=== PATIENT | male | born 1945 | race Caucasian/White ===

== ENCOUNTER 2019-03-04 15:54 | Emergency (ER) | payer MEDICARE ==
[~2019-03-04] VITALS: Ht 182 cm; Wt 88.2 kg
[~2019-03-04 15:54] MED LIST: BENECAR; DNPZ5T PO; MEMA5TAB2 PO; NITR-65 PO; SULAR; TOPROL
[2019-03-04] MEDS ORDERED: AMOX500C2 (16:17)
[2019-03-04] MEDS ORDERED: MEMA10TA22 (16:17)
[2019-03-04] MEDS ORDERED: ACET1TAB43 (16:17)
[2019-03-04] MEDS ORDERED: LOSA100T57 (16:17)
[2019-03-04] MEDS ORDERED: METO-370 (16:17)
[2019-03-04] MEDS ORDERED: DONE10TA41 (16:17)
[2019-03-04] MEDS ORDERED: AMLO5TAB9 (16:17)
[2019-03-04 16:30] LABS: BASOPHILS % (AUTO) 0 % (0-10); EOSINOPHILS # (AUTO) 0.1 10^3/uL (0.0-0.3); EOSINOPHILS % (AUTO) 1 % (0-10); HEMATOCRIT 42 % (40-54); HEMOGLOBIN 14.4 G/DL (13.3-17.7); LYMPHOCYTES # (AUTO) 1.1 X 10^3 (1.0-4.0); LYMPHOCYTES % (AUTO) 13 % (12-44); MEAN CORPUSCULAR HEMOGLOBIN 33 PG (25-34); MEAN CORPUSCULAR HGB CONC 34 G/DL (32-36); MEAN CORPUSCULAR VOLUME 97 FL (80-99); MEAN PLATELET VOLUME 8.4 FL (7.4-10.4); MONOCYTES # (AUTO) 0.4 X 10^3 (0.0-1.0); MONOCYTES % (AUTO) 5 % (0-12); NEUTROPHILS # (AUTO) 6.7 X 10^3 (1.8-7.8); NEUTROPHILS % (AUTO) 80 % (42-75); PLATELET COUNT 208 10^3/uL (130-400); RED CELL DISTRIBUTION WIDTH 12.8 % (10.0-14.5); WHITE BLOOD COUNT 8.4 10^3/uL (4.3-11.0)
[2019-03-04 16:44] LABS: ALANINE AMINOTRANSFERASE 16 U/L (0-55); ALBUMIN 4.3 GM/DL (3.2-4.5); ALKALINE PHOSPHATASE 81 U/L (40-136); BILIRUBIN,TOTAL 0.8 MG/DL (0.1-1.0); BUN/CREATININE RATIO 12; CALCIUM 9.6 MG/DL (8.5-10.1); CARBON DIOXIDE 28 MMOL/L (21-32); CHLORIDE 105 MMOL/L (98-107); CREATININE SERUM 0.89 MG/DL (0.60-1.30); GFR ESTIMATED > 60; GLUCOSE 105 MG/DL (70-105); POTASSIUM 4.1 MMOL/L (3.6-5.0); SODIUM 141 MMOL/L (135-145); TOTAL PROTEIN 7.4 GM/DL (6.4-8.2)
--- NOTE | 2019-03-04 16:47 | NUR ---
Actual amount of bladder scan was 545mL
[2019-03-04] MEDS ORDERED: LIDOCAINE UROJET 2% GEL 10 ML PKG TOP ONE (17:00)
[2019-03-04] MEDS ORDERED: TAMSULOSIN 0.4 MG (FLOMAX) CAP PO ONE (17:15)
[2019-03-04 17:39] LABS: BILIRUBIN,URINE NEGATIVE (NEGATIVE); CLARITY,URINE CLEAR; COLOR,URINE YELLOW; GLUCOSE, URINE (UA) NEGATIVE (NEGATIVE); KETONES,URINE NEGATIVE (NEGATIVE); LEUKOCYTE ESTERASE ,URINE NEGATIVE (NEGATIVE); NITRITE,URINE NEGATIVE (NEGATIVE); PH,URINE 7 (5-9); PROTEIN,URINE NEGATIVE (NEGATIVE); UROBILINOGEN,URINE NORMAL (NORMAL)
[2019-03-04 17:42] LABS: BACTERIA,URINE NEGATIVE /HPF; RBC,URINE RARE /HPF
[2019-03-04] MEDS ORDERED: LOPERAMIDE 2 MG (IMODIUM) TABLET PO ONE (18:00)
--- NOTE | 2019-03-04 18:15 | ED General ---
General Chief Complaint: Abdominal/GI Problems Stated Complaint: N,V,D,UTI SYMPTOMS Nursing Triage Note: c/o nausea and diarrhea. reports urinary urgency Nursing Sepsis Screen: No Definite Risk Source of Information: Patient Exam Limitations: No Limitations History of Present Illness Date Seen by Provider: Mar 04, 2019 Time Seen by Provider: 16:00 Initial Comments This 73-year-old gentleman is brought to the emergency room by his with concerns about declining speech over the last 1-2 weeks. He is also had some agitation. He had some angry outbursts with his family in [place] over the weekend. Patient has had long-standing dementia for which he takes Aricept and Namenda. The Aricept was stopped about 2 weeks ago because of nausea. He was just restarted yesterday. His thinks perhaps stopping the Aricept may be a contributing factor. He also in the interim has had a dental extraction for a dental abscess. He has been on amoxicillin. He has developed some diarrhea the past couple of days. His rectal area is irritated as a result. He tried to urinate a couple of times prior to my exam and was unable. Allergies and Home Medications Allergies Coded Allergies: No Known Allergies (Verified Allergy, Unknown, 08/10/05) Home Medications Tamsulosin HCl 0.4 Mg Cap, 0.4 MG PO DAILY Prescribed by: JEANETTE MITCHELL on 03/04/19 5317 Patient Home Medication List Home Medication List Reviewed: Yes Review of Systems Review of Systems Constitutional: no symptoms reported EENTM: see HPI Respiratory: no symptoms reported Cardiovascular: no symptoms reported Gastrointestinal: see HPI Genitourinary: see HPI Musculoskeletal: no symptoms reported Skin: see HPI Psychiatric/Neurological: See HPI Hematologic/Lymphatic: No Symptoms Reported Immunological/Allergic: no symptoms reported Past Udzwflm-Ojplth-Dprnmt Hx Past Med/Social Hx: Reviewed Nursing Past Med/Soc Hx Patient Social History Alcohol Use: Denies Use Recreational Drug Use: No Smoking Status: Never a Smoker Recent Foreign Travel: No Contact w/Someone Who Travel: No Recent Infectious Disease Expo: No Physical Abuse: No Sexual Abuse: No Immunizations Up To Date Tetanus Booster (TDap): Less than 5yrs Date of Influenza Vaccine: Mar 13, 2012 Past Medical History Surgeries: Yes Appendectomy Respiratory: No Cardiac: Yes Hypertension Neurological: Yes Dementia Gastrointestinal: No Musculoskeletal: No Endocrine: No Cancer: No Psychosocial: No Integumentary: No Blood Disorders: No Physical Exam Vital Signs Vital Signs - First Documented 03/04/19 16:06 Temp 36.7 Pulse 74 Resp 18 B/P (MAP) 161/94 (116) Pulse Ox 97 Capillary Refill : Less Than 3 Seconds Height, Weight, BMI Height: '" Weight: lbs. oz. 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 Speech was articulate but content was confused.) Skin: Normal Color, Warm/Dry Progress/Results/Core Measures Suspected Sepsis Recent Fever Within 48 Hours: No Infection Criteria Present: None New/Unexplained Altered Menta: No Sepsis Screen: No Definite Risk SIRS Temperature: Pulse: 74 Respiratory Rate: 18 Laboratory Tests 03/04/19 16:20: White Blood Count 8.4 Blood Pressure 161 /94 Mean: 116 Laboratory Tests 03/04/19 16:20: Creatinine 0.89, Platelet Count 208, Total Bilirubin 0.8 Results/Orders Lab Results Laboratory Tests Test 03/04/19 16:20 03/04/19 17:10 Range/Units White Blood Count 8.4 4.3-11.0 10^3/uL Red Blood Count 4.33 L 4.35-5.85 10^6/uL Hemoglobin 14.4 13.3-17.7 G/DL Hematocrit 42 40-54 % Mean Corpuscular Volume 97 80-99 FL Mean Corpuscular Hemoglobin 33 25-34 PG Mean Corpuscular Hemoglobin Concent 34 32-36 G/DL Red Cell Distribution Width 12.8 10.0-14.5 % Platelet Count 208 130-400 10^3/uL Mean Platelet Volume 8.4 7.4-10.4 FL Neutrophils (%) (Auto) 80 H 42-75 % Lymphocytes (%) (Auto) 13 12-44 % Monocytes (%) (Auto) 5 0-12 % Eosinophils (%) (Auto) 1 0-10 % Basophils (%) (Auto) 0 0-10 % Neutrophils # (Auto) 6.7 1.8-7.8 X 10^3 Lymphocytes # (Auto) 1.1 1.0-4.0 X 10^3 Monocytes # (Auto) 0.4 0.0-1.0 X 10^3 Eosinophils # (Auto) 0.1 0.0-0.3 10^3/uL Basophils # (Auto) 0.0 0.0-0.1 10^3/uL Sodium Level 141 135-145 MMOL/L Potassium Level 4.1 3.6-5.0 MMOL/L Chloride Level 105 98-107 MMOL/L Carbon Dioxide Level 28 21-32 MMOL/L Anion Gap 8 5-14 MMOL/L Blood Urea Nitrogen 11 7-18 MG/DL Creatinine 0.89 0.60-1.30 MG/DL Estimat Glomerular Filtration Rate > 60 BUN/Creatinine Ratio 12 Glucose Level 105 70-105 MG/DL Calcium Level 9.6 8.5-10.1 MG/DL Corrected Calcium 9.4 8.5-10.1 MG/DL Total Bilirubin 0.8 0.1-1.0 MG/DL Aspartate Amino Transf (AST/SGOT) 25 5-34 U/L Alanine Aminotransferase (ALT/SGPT) 16 0-55 U/L Alkaline Phosphatase 81 40-136 U/L Total Protein 7.4 6.4-8.2 GM/DL Albumin 4.3 3.2-4.5 GM/DL Urine Color YELLOW Urine Clarity CLEAR Urine pH 7 5-9 Urine Specific [place] 1.010 L 1.016-1.022 Urine Protein NEGATIVE NEGATIVE Urine Glucose (UA) NEGATIVE NEGATIVE Urine Ketones NEGATIVE NEGATIVE Urine Nitrite NEGATIVE NEGATIVE Urine Bilirubin NEGATIVE NEGATIVE Urine Urobilinogen NORMAL NORMAL MG/DL Urine Leukocyte Esterase NEGATIVE NEGATIVE Urine RBC (Auto) NEGATIVE NEGATIVE Urine RBC RARE /HPF Urine WBC NONE /HPF Urine Squamous Epithelial Cells NONE /HPF Urine Crystals NONE /LPF Urine Bacteria NEGATIVE /HPF Urine Casts NONE /LPF Urine Mucus NEGATIVE /LPF Urine Culture Indicated NO My Orders Orders - JEANETTE ROBLES MD Cbc With Automated Diff (03/04/19 15:59) Comprehensive Metabolic Panel (03/04/19 15:59) Ua Culture If Indicated (03/04/19 15:59) Ed Iv/Invasive Line Start (03/04/19 15:59) Bladder Scan (03/04/19 16:26) Lidocaine 2% (Urojet) (Xylocaine Urojet) (03/04/19 17:00) Taylor Cath (03/04/19 17:01) Tamsulosin Capsule (Flomax Capsule) (03/04/19 17:15) Loperamide Tablet (Imodium Tablet) (03/04/19 18:00) Medications Given in ED Current Medications Medications Dose Ordered Sig/Quentin Route Start Time Stop Time Status Last Admin Dose Admin Lidocaine HCl 10 ml ONCE ONCE TOP 03/04/19 17:00 03/04/19 17:02 DC 03/04/19 17:25 10 ML Loperamide HCl 2 mg ONCE ONCE PO 03/04/19 18:00 03/04/19 18:01 DC 03/04/19 18:26 2 MG Tamsulosin HCl 0.4 mg ONCE ONCE PO 03/04/19 17:15 03/04/19 17:16 DC 03/04/19 18:26 0.4 MG Vital Signs/I&O 03/04/19 03/04/19 16:06 18:27 Temp 36.7 36.7 Pulse 74 74 Resp 18 18 B/P (MAP) 161/94 (116) 161/94 (116) Pulse Ox 97 97 Capillary Refill : Less Than 3 Seconds Blood Pressure Mean: 116 Progress Note : Progress Note Patient tried to urinate several times but could not. Urinary retention was suspected as a contributing factor to his confusion and agitation. Bladder scan showed a proximally 450 mL. Taylor catheter was placed and yielded approximately 600 mL of retained urine. Taylor catheter remained in place. Patient was given Imodium and Flomax prior to discharge and it Flomax prescription was provided. Patient is to follow-up with Dr. Swenson as soon as possible. Departure Impression Primary Impression: Urinary retention Additional Impressions: Dementia Qualified Codes: F03.91 - Unspecified dementia with behavioral disturbance Agitation Disposition: 01 HOME, SELF-CARE Condition: Improved Departure-Patient Inst. Decision time for Depature: 18:05 Referrals: LEEANNE ROBERT DO (PCP/Family) Primary Care Physician GABE SWENSON MD Patient Instructions: How to Care for Your Taylor Catheter, Male, Urinary Retention Add. Discharge Instructions: Follow-up with Dr. Swenson as soon as possible. Call his office Tuesday morning for an appointment. Start Flomax (tamsulosin) as prescribed. Empty the Taylor bag often. Try to keep the bag lower than the bladder as much as possible. Return to the emergency room if you have worsening symptoms or any problems with the catheter. Continue other medications as previously directed. Encourage plenty of clear liquids while diarrhea persists. Avoid dairy products until diarrhea has resolved for a couple of days. You may use Imodium sparingly. All discharge instructions reviewed with patient and/or family. Voiced understanding. Scripts Tamsulosin HCl (Flomax) 0.4 Mg Cap 0.4 MG PO DAILY, #30 CAP Prov: JEANETTE ROBLES MD 03/04/19 Copy Copies To 1: GABE SWENSON MD Copies To 2: LEEANNE ROBERT JOSHUA T MD Mar 04, 2019 18:15
[2019-03-04] MEDS ORDERED: TAMS0.4C98 PO (18:20)
[2019-03-04 18:27] VITALS: BP 161/94
== END 2019-03-04 18:27 | disposition home or self-care (01) ==
LOC: EDUNIT# 15:54 → ER 15:56
DX: R33.9 Retention of urine, unspecified (principal); F03.90 Unspecified dementia, unspecified severity, without behavioral disturbance, psychotic disturbance, mood disturbance, and anxiety; R45.1 Restlessness and agitation; I10 Essential (primary) hypertension; Z90.49 Acquired absence of other specified parts of digestive tract
CPT/HCPCS: 36415; 51702; 80053; 81000; 85025

== ENCOUNTER 2019-03-07 09:52 | Emergency (ER) | payer MEDICARE ==
[~2019-03-07] VITALS: Ht 177 cm; Wt 80.0 kg
[~2019-03-07 09:52] MED LIST changes: +ACET1TAB43; +AMLO5TAB9; +AMOX500C2; +DONE10TA41; +LOSA100T57; +MEMA10TA22; +METO-370; +TAMS0.4C98 PO
--- NOTE | 2019-03-07 10:51 | NUR ---
SOLIS CATH REMOVED
--- NOTE | 2019-03-07 11:09 | ED GU-Male ---
General Chief Complaint: Catheter/Drain/Tube Problems Stated Complaint: CATHETER ISSUES Nursing Triage Note: PT TO ROOM 8 PT CO OF PT HAVING PAIN IN CATHETER AREA LAST PM, PT HAS HX OF ALZHIEMERS AND IS PLEASANTLY CONFUSED. PT IS TO SEE DR SWENSON AT 1430 TODAY. Source: patient Exam Limitations: no limitations History of Present Illness Date Seen by Provider: Mar 07, 2019 Time Seen by Provider: 10:50 Initial Comments Here with report of irritation around the area of the catheter. He had that placed several days ago for urinary retention. He has been doing better since. He does have appointment with Dr. Swenson today at 1430. No fever or vomiting. Previously had diarrhea but that subsequently stopped. He has not had a bowel movement for several days but he did have Imodium after the diarrhea illness. He is not uncomfortable in the abdomen at all. Timing/Duration: this morning Severity/Quality: moderate Location: other (penile/urethral) Radiation: none Activities at Onset: none Associated Symptoms: No abdominal pain, No fever/chills, No nausea/vomiting Allergies and Home Medications Allergies Coded Allergies: No Known Allergies (Verified Allergy, Unknown, 08/10/05) Home Medications Tamsulosin HCl 0.4 Mg Cap, 0.4 MG PO DAILY Prescribed by: JEANETTE MITCHELL on 03/04/19 1820 Patient Home Medication List Home Medication List Reviewed: Yes Review of Systems Review of Systems Constitutional: see HPI; No chills, No fever Respiratory: no symptoms reported Cardiovascular: no symptoms reported Gastrointestinal: no symptoms reported Genitourinary: see HPI, burning, pain Past Dgghhha-Rwofbi-Hzxdcc Hx Past Med/Social Hx: Reviewed Nursing Past Med/Soc Hx Patient Social History Alcohol Use: Denies Use Recreational Drug Use: No Smoking Status: Never a Smoker Recent Foreign Travel: No Contact w/Someone Who Travel: No Recent Infectious Disease Expo: No Recent Hopitalizations: No Physical Abuse: No Sexual Abuse: No Immunizations Up To Date Tetanus Booster (TDap): Less than 5yrs Date of Influenza Vaccine: Mar 13, 2012 Seasonal Allergies Seasonal Allergies: No Past Medical History Surgeries: Yes Appendectomy Respiratory: No Cardiac: Yes Hypertension Neurological: Yes Dementia Gastrointestinal: No Musculoskeletal: No Endocrine: No Cancer: No Psychosocial: No Integumentary: No Blood Disorders: No Family Medical History Reviewed Nursing Family Hx Physical Exam Vital Signs Vital Signs - First Documented 03/07/19 10:00 Temp 36.3 Pulse 79 Resp 18 B/P (MAP) 152/93 (112) Pulse Ox 97 Capillary Refill : Less Than 3 Seconds Height, Weight, BMI Height: '" Weight: lbs. oz. kg; 25.00 BMI Method:Actual General Appearance: WD/WN, no apparent distress Cardiovascular: regular rate, rhythm, no murmur Respiratory: lungs clear, normal breath sounds Male: normal genitalia, other (seems to have some irritation from the catheter to the urethral meatus) Neurologic/Psychiatric: alert, normal mood/affect, other (does have dementia and is confused and has some difficulty with conversation but not change from baseline per the .) Progress/Results/Core Measures Suspected Sepsis Recent Fever Within 48 Hours: No Infection Criteria Present: None New/Unexplained Altered Menta: No Sepsis Screen: No Definite Risk SIRS Temperature: Pulse: 79 Respiratory Rate: 18 Blood Pressure 152 /93 Mean: 112 Results/Orders Vital Signs/I&O 03/07/19 10:00 Temp 36.3 Pulse 79 Resp 18 B/P (MAP) 152/93 (112) Pulse Ox 97 Capillary Refill : Less Than 3 Seconds Blood Pressure Mean: 112 Progress Note : Progress Note Seen and evaluated. The patient does have free flowing urine from the catheter. There does appear to be causing some irritation. We went ahead and removed that he was much more comfortable. He does have appointment with Dr. Swenson today to evaluate for urinary problems including prostate problems. We will have him continue that appointment. Overall much better now. Discharged home with return precautions. Patient and verbalize understanding instructions and agreement with plan. Departure Impression Primary Impression: Problem with urinary catheter Disposition: 01 HOME, SELF-CARE Condition: Improved Departure-Patient Inst. Decision time for Depature: 11:07 Referrals: LEEANNE ROBERT DO (PCP/Family) Primary Care Physician GABE SWENSON MD Patient Instructions: Taylor Catheter, Male, How to Care for Your Taylor Catheter, Male Add. Discharge Instructions: All discharge instructions reviewed with patient and/or family. Voiced understanding. Keep appointment with Dr. Swenson today as scheduled. Return for worse pain, problems going to the bathroom, weakness, breathing problems, fevers or other concerns as needed. Copy Copies To 1: GABE SWENSON MD Copies To 2: LEEANNE ROBERT TIMOTHY D MD Mar 07, 2019 11:08
[2019-03-07 11:12] VITALS: BP 152/93
== END 2019-03-07 11:12 | disposition home or self-care (01) ==
LOC: EDUNIT# 09:52 → ER 09:53
DX: T83.098A Other mechanical complication of other urinary catheter, initial encounter (principal); I10 Essential (primary) hypertension; G30.9 Alzheimer's disease, unspecified; F02.80 Dementia in other diseases classified elsewhere, unspecified severity, without behavioral disturbance, psychotic disturbance, mood disturbance, and anxiety; Z90.49 Acquired absence of other specified parts of digestive tract
CPT/HCPCS: 99281

== ENCOUNTER 2019-03-22 03:12 | Emergency (ER) | payer MEDICARE ==
[~2019-03-22] VITALS: Ht 182 cm; Wt 77.0 kg
[2019-03-22 04:04] LABS: BILIRUBIN,URINE NEGATIVE (NEGATIVE); CLARITY,URINE CLEAR; COLOR,URINE YELLOW; GLUCOSE, URINE (UA) NEGATIVE (NEGATIVE); KETONES,URINE NEGATIVE (NEGATIVE); LEUKOCYTE ESTERASE ,URINE NEGATIVE (NEGATIVE); NITRITE,URINE NEGATIVE (NEGATIVE); PH,URINE 6 (5-9); PROTEIN,URINE NEGATIVE (NEGATIVE); UROBILINOGEN,URINE NORMAL (NORMAL)
[2019-03-22 04:10] LABS: BACTERIA,URINE NEGATIVE /HPF; SQUAMOUS EPITHELIAL CELL,UR RARE /HPF; WBC,URINE RARE /HPF
[2019-03-22 04:11] LABS: HYALINE CASTS, URINE RARE /LPF
--- NOTE | 2019-03-22 05:25 | ED General ---
General Chief Complaint: - Urinary Stated Complaint: CONSTIPATION, PAIN Nursing Triage Note: PT PRESENTS TO THE ED AMBULATORY TO ROOM 10, STATES THAT THE PT HASN'S HAD A BOWEL MOVEMENT FOR THREE DAYS, SEVERAL OTC MEDS HAVE BEEN GIVEN. PT'S STATES THE PT IS A POOR HISTORIAN D/T HAVING DEMENTIA, PT VERBALIZED THE NEED/SENSATION TO URINATE, STATES THE PT HAS HAD POOR URINE OUTPUT AND RECENTLY REQUIRED A CATHETER D/T RETENTION THAT WAS REMOVED SEVERAL DAYS AGO Nursing Sepsis Screen: No Definite Risk Source of Information: Patient Exam Limitations: No Limitations History of Present Illness Date Seen by Provider: Mar 22, 2019 Time Seen by Provider: 03:29 Initial Comments This 73-year-old gentleman is brought to the emergency room by his with concerns about abdominal pain and possible constipation. She reports that he has intermittently been doubled over in pain tonight. He has not slept well las t night or tonight. He denies pain at the time of my assessment. Patient has been developing progressive dementia recently. Patient recently had a history of urinary obstruction and had a Taylor catheter placed until follow-up with Dr. Swenson. Unfortunately, patient's dementia makes him a poor historian and he is unable to communicate specifics about his condition and pain. Allergies and Home Medications Allergies Coded Allergies: No Known Allergies (Verified Allergy, Unknown, 08/10/05) Home Medications Tamsulosin HCl 0.4 Mg Cap, 0.4 MG PO DAILY Prescribed by: JEANETTE MITCHELL on 03/04/19 6842 Patient Home Medication List Home Medication List Reviewed: Yes Review of Systems Review of Systems Constitutional: no symptoms reported EENTM: no symptoms reported Respiratory: no symptoms reported Cardiovascular: no symptoms reported Gastrointestinal: see HPI Genitourinary: see HPI Musculoskeletal: no symptoms reported Skin: no symptoms reported Psychiatric/Neurological: See HPI Hematologic/Lymphatic: No Symptoms Reported Immunological/Allergic: no symptoms reported Past Nyyosgm-Vzlulk-Vwaclh Hx Patient Social History Alcohol Use: Denies Use Recreational Drug Use: No Smoking Status: Never a Smoker Recent Foreign Travel: No Contact w/Someone Who Travel: No Recent Infectious Disease Expo: No Recent Hopitalizations: No Physical Abuse: No Sexual Abuse: No Mistreated: No Fear: No Immunizations Up To Date Tetanus Booster (TDap): Less than 5yrs PED Vaccines UTD: Yes Date of Influenza Vaccine: Mar 13, 2012 Seasonal Allergies Seasonal Allergies: No Past Medical History Surgeries: Yes Appendectomy Respiratory: No Cardiac: Yes Hypertension Neurological: Yes Dementia Genitourinary: Yes (URINARY RETENTION 03/31) Gastrointestinal: No Musculoskeletal: No Endocrine: No Cancer: No Psychosocial: No Integumentary: No Blood Disorders: No Physical Exam Vital Signs Vital Signs - First Documented 03/22/19 03:20 Temp 35.7 Pulse 70 Resp 18 B/P (MAP) 148/91 (110) Pulse Ox 95 O2 Delivery Room Air Capillary Refill : Less Than 3 Seconds Height, Weight, BMI Height: '" Weight: lbs. oz. 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, Other (confused with dementia) Skin: Normal Color, Warm/Dry Progress/Results/Core Measures Suspected Sepsis Recent Fever Within 48 Hours: No Infection Criteria Present: None New/Unexplained Altered Menta: No Sepsis Screen: No Definite Risk SIRS Temperature: Pulse: 70 Respiratory Rate: 18 Blood Pressure 148 /91 Mean: 110 Results/Orders Lab Results Laboratory Tests Test 03/22/19 03:59 Range/Units Urine Color YELLOW Urine Clarity CLEAR Urine pH 6 5-9 Urine Specific [place] 1.020 1.016-1.022 Urine Protein NEGATIVE NEGATIVE Urine Glucose (UA) NEGATIVE NEGATIVE Urine Ketones NEGATIVE NEGATIVE Urine Nitrite NEGATIVE NEGATIVE Urine Bilirubin NEGATIVE NEGATIVE Urine Urobilinogen NORMAL NORMAL MG/DL Urine Leukocyte Esterase NEGATIVE NEGATIVE Urine RBC (Auto) NEGATIVE NEGATIVE Urine RBC NONE /HPF Urine WBC RARE /HPF Urine Squamous Epithelial Cells RARE /HPF Urine Crystals NONE /LPF Urine Bacteria NEGATIVE /HPF Urine Casts PRESENT /LPF Urine Hyaline Casts RARE /LPF Urine Mucus SMALL H /LPF Urine Culture Indicated NO My Orders Orders - JEANETTE ROBLES MD Ua Culture If Indicated (03/22/19 03:36) Abdomen, Flat & Upright/Decub (03/22/19 03:36) Bladder Scan (03/22/19 03:36) Vital Signs/I&O 03/22/19 03/22/19 03:20 05:31 Temp 35.7 35.7 Pulse 70 70 Resp 18 18 B/P (MAP) 148/91 (110) 148/91 (110) Pulse Ox 95 95 O2 Delivery Room Air Capillary Refill : Less Than 3 Seconds Blood Pressure Mean: 110 Progress Note : Progress Note Patient was unable to urinate despite feeling like he needed to. A bladder scan was performed and revealed 550 mL of retained urine. Taylor catheter was placed and patient did feel better. Abdominal x-rays were obtained. There seemed to be a significant amount of stool in the rectum but otherwise the bowel gas pattern was unremarkable without significant constipation noted elsewhere. Diagnostic Imaging Diagonstic Imaging: Xray Plain Films/CT/US/NM/MRI: abdomen, pelvis Comments KUB and upright viewed by me. Report not yet available. There is notable stool throughout the colon and small bowel but this does not appear to represent constipation. He did have more stool in the rectum. No other acute abnormalities were appreciated. Departure Impression Primary Impression: Urinary obstruction Additional Impression: Constipation Qualified Codes: K59.00 - Constipation, unspecified Disposition: 01 HOME, SELF-CARE Condition: Improved Departure-Patient Inst. Decision time for Depature: 05:05 Referrals: LEEANNE ROBERT DO (PCP/Family) Primary Care Physician Patient Instructions: Constipation in Adults, Taylor Catheter, Male, Urinary Obstruction Add. Discharge Instructions: Empty the catheter bag frequently and try to keep the catheter bag below the level of the bladder is much as possible. Follow-up with Dr. Swenson as soon as possible. Encourage plenty of clear liquids. Eat a diet high in fiber with plenty of fruits, vegetables, and whole grain products. Avoid excessive meats, cheeses, fast foods, or processed foods. If constipation does not resolve with placement of the catheter, consider using MiraLAX (polyethylene glycol) once or twice a day or a Dulcolax suppository. These may be purchased [id number]. Follow-up with your primary care provider as soon as possible. All discharge instructions reviewed with patient and/or family. Voiced understanding. Copy Copies To 1: LEEANNE ROBERT DO Copies To 2: GABE SWENSON MD, JOSHUA T MD Mar 22, 2019 05:25
[2019-03-22 05:31] VITALS: BP 148/91
--- NOTE | 2019-03-22 07:11 | Diagnostic Imaging Report ---
INDICATION: Constipation. FINDINGS: The lung bases are clear. Bowel gas pattern is nonspecific. There is no free air. There are calcified phleboliths in the pelvis. IMPRESSION: Nonspecific bowel gas pattern. Dictated by: Dictated on workstation # [id number]
== END 2019-03-22 05:32 | disposition home or self-care (01) ==
LOC: EDUNIT# 03:12 → ER 03:13
DX: N13.9 Obstructive and reflux uropathy, unspecified (principal); K59.00 Constipation, unspecified; I10 Essential (primary) hypertension; F03.90 Unspecified dementia, unspecified severity, without behavioral disturbance, psychotic disturbance, mood disturbance, and anxiety; Z90.49 Acquired absence of other specified parts of digestive tract
CPT/HCPCS: 51702; 74019; 81000

== ENCOUNTER 2019-06-24 11:39 | Emergency (ER) | payer MEDICARE ==
[~2019-06-24] VITALS: Ht 177 cm; Wt 80.0 kg
[~2019-06-24 11:39] MED LIST changes: -AMLO5TAB9; +AMLO5TAB9 PO; -LOSA100T57; +LOSA100T57 PO; -MEMA10TA22; +MEMA10TA57 PO; -METO-370; +METO50TA7 PO; -TAMS0.4C98 PO; +TMSL.4C PO
--- NOTE | 2019-06-24 11:58 | ED Psychosocial ---
General Chief Complaint: Psych/Social Disorder Stated Complaint: ANXIETY History of Present Illness Date Seen by Provider: Jun 24, 2019 Time Seen by Provider: 11:45 Initial Comments 73-year-old male with history of dementia presents because his is concerned about increased anxiety, paranoia and difficult to manage at home. He has progressively been getting worse over the last 6 months, nothing acute this weekend. She has respite care in the home 3-4 hours/week, otherwise she manages his care. She has POA, it is not on file here. She states [facility] were [facility] this [facility] and he began crying uncontrollably. He is alert, in no signs of distress, not crying or emotional at this time. Answers some questions appropriately but has flight of ideas and impaired concentration. Cooperative with staff. reports he is eating good at home and drinks water. He sleeps most nights and through the day, but usually no more than 3 hours at a time. Is taking medication for Alzheimer's dementia as well as Lexapro for anxiety and Xanax 1-2 times daily, she has been trying to limit it and only use at night. No recent infections, fevers, cough, Weight gain/loss, falls or head injuries. He has an appt tomorrow with his PCP to discuss [facility] at [facility] Timing/Duration: getting worse Severity: mild Associated Symptoms: anxiety, impaired concentration Allergies and Home Medications Allergies Coded Allergies: No Known Allergies (Verified Allergy, Unknown, 08/10/05) Home Medications Tamsulosin HCl 0.4 Mg Cap, 0.4 MG PO DAILY Prescribed by: JEANETTE MITCHELL on 03/04/19 7860 Patient Home Medication List Home Medication List Reviewed: Yes Review of Systems Constitutional: no symptoms reported, see HPI EENTM: see HPI, no symptoms reported Respiratory: no symptoms reported, see HPI Cardiovascular: no symptoms reported, see HPI Gastrointestinal: no symptoms reported, see HPI Genitourinary: no symptoms reported, see HPI Musculoskeletal: no symptoms reported, see HPI Skin: no symptoms reported, see HPI Psychiatric/Neurological: See HPI, Anxiety All Other Systems Reviewed Negative Unless Noted: Yes Past Tqrdxhl-Gqqxnc-Obhjat Hx Past Med/Social Hx: Reviewed Nursing Past Med/Soc Hx Patient Social History Recent Foreign Travel: No Contact w/Someone Who Travel: No Recent Hopitalizations: No Immunizations Up To Date Tetanus Booster (TDap): Less than 5yrs PED Vaccines UTD: Yes Date of Influenza Vaccine: Mar 13, 2012 Seasonal Allergies Seasonal Allergies: No Past Medical History Surgeries: Yes Appendectomy Respiratory: No Cardiac: Yes Hypertension Neurological: Yes Dementia Genitourinary: Yes (URINARY RETENTION 03/31) Gastrointestinal: No Musculoskeletal: No Endocrine: No Cancer: No Psychosocial: No Integumentary: No Blood Disorders: No Physical Exam Vital Signs - First Documented 06/24/19 11:40 Temp 36.6 Pulse 67 Resp 18 B/P (MAP) 139/86 (103) Pulse Ox 97 Capillary Refill : Height, Weight, BMI Height: '" Weight: lbs. oz. kg; 23.00 BMI Method:Actual General Appearance: WD/WN, no apparent distress HEENT: PERRL/EOMI, normal ENT inspection, TMs normal, pharynx normal Neck: non-tender, full range of motion, supple, normal inspection Respiratory: chest non-tender, lungs clear, normal breath sounds Cardiovascular: normal peripheral pulses, regular rate, rhythm Gastrointestinal: normal bowel sounds, non tender, soft Neurologic/Psychiatric: no motor/sensory deficits, alert, normal mood/affect (appropriate with bouts of confusion but cooperative and easily re-directed. ), other (Oriented to person and could state his 's name) Appearance/Memory: appropriate appearance; No appropriate insight; neat; No disheveled; impaired recent memory, impaired remote memory Behavior/Eye Contact: cooperative, good eye contact, decreased rate of speech; No compulsive, No uncooperative Thoughts/Hallucinations: flight of ideas, paranoid (about his leaving or new surroundings. ) Skin: normal color, warm/dry; No rash Lymphatic: no adenopathy Progress/Results/Core Measures Results/Orders Lab Results Laboratory Tests Test 06/24/19 11:50 06/24/19 12:26 Range/Units Urine Color YELLOW Urine Clarity CLEAR Urine pH 6.5 5-9 Urine Specific [place] 1.020 1.016-1.022 Urine Protein NEGATIVE NEGATIVE Urine Glucose (UA) NEGATIVE NEGATIVE Urine Ketones NEGATIVE NEGATIVE Urine Nitrite NEGATIVE NEGATIVE Urine Bilirubin NEGATIVE NEGATIVE Urine Urobilinogen 0.2 < = 1.0 MG/DL Urine Leukocyte Esterase NEGATIVE NEGATIVE Urine RBC (Auto) NEGATIVE NEGATIVE Urine RBC RARE /HPF Urine WBC RARE /HPF Urine Squamous Epithelial Cells RARE /HPF Urine Crystals NONE /LPF Urine Bacteria TRACE /HPF Urine Casts NONE /LPF Urine Mucus NEGATIVE /LPF Urine Culture Indicated NO White Blood Count 3.7 L 4.3-11.0 10^3/uL Red Blood Count 4.12 L 4.35-5.85 10^6/uL Hemoglobin 13.7 13.3-17.7 G/DL Hematocrit 40 40-54 % Mean Corpuscular Volume 98 80-99 FL Mean Corpuscular Hemoglobin 33 25-34 PG Mean Corpuscular Hemoglobin Concent 34 32-36 G/DL Red Cell Distribution Width 12.7 10.0-14.5 % Platelet Count 164 130-400 10^3/uL Mean Platelet Volume 7.8 7.4-10.4 FL Neutrophils (%) (Auto) 69 42-75 % Lymphocytes (%) (Auto) 21 12-44 % Monocytes (%) (Auto) 8 0-12 % Eosinophils (%) (Auto) 2 0-10 % Basophils (%) (Auto) 0 0-10 % Neutrophils # (Auto) 2.3 1.8-7.8 X 10^3 Lymphocytes # (Auto) 0.7 L 1.0-4.0 X 10^3 Monocytes # (Auto) 0.3 0.0-1.0 X 10^3 Eosinophils # (Auto) 0.1 0.0-0.3 10^3/uL Basophils # (Auto) 0.0 0.0-0.1 10^3/uL Prothrombin Time 13.8 12.2-14.7 SEC INR Comment 1.0 0.8-1.4 Activated Partial Thromboplast Time 29 24-35 SEC Sodium Level 138 135-145 MMOL/L Potassium Level 4.4 3.6-5.0 MMOL/L Chloride Level 109 H 98-107 MMOL/L Carbon Dioxide Level 17 L 21-32 MMOL/L Anion Gap 12 5-14 MMOL/L Blood Urea Nitrogen 11 7-18 MG/DL Creatinine 0.92 0.60-1.30 MG/DL Estimat Glomerular Filtration Rate > 60 BUN/Creatinine Ratio 12 Glucose Level 99 70-105 MG/DL Calcium Level 9.3 8.5-10.1 MG/DL Corrected Calcium 9.4 8.5-10.1 MG/DL Total Bilirubin 0.6 0.1-1.0 MG/DL Aspartate Amino Transf (AST/SGOT) 30 5-34 U/L Alanine Aminotransferase (ALT/SGPT) 20 0-55 U/L Alkaline Phosphatase 62 40-136 U/L Total Protein 6.9 6.4-8.2 GM/DL Albumin 3.9 3.2-4.5 GM/DL My Orders Orders - NICHO PATINO DANIELLA Ua Culture If Indicated (06/24/19 12:01) Cbc With Automated Diff (06/24/19 12:15) Comprehensive Metabolic Panel (06/24/19 12:15) Protime With Inr (06/24/19 12:15) Partial Thromboplastin Time (06/24/19 12:15) Vital Signs/I&O 06/24/19 11:40 Temp 36.6 Pulse 67 Resp 18 B/P (MAP) 139/86 (103) Pulse Ox 97 Progress Progress Note : Time: 11:45 Progress Note Patient seen and evaluated, will obtain labs to rule out medical cause vs progression of Alzheimer's. open to admitting to [facility] at [place], if an option. Call placed and screener will come evaluate patient. 1215 left to obtain POA paperwork. She does report patient had episode of attempted elopement on 06/22/19 while she was away from him. Respite care was able to manage him, until she returned home. Patient's door left open and staff watching him, while gone. 1230 Patient ambulated out of room, desiring to leave to find his . Cooperative and walked around ED, then returned to room. 1245 returned, continues to be cooperative, awaiting [facility] screener. 1305 Screener here to visit with patient and . 1415 Screener and have agreed to transfer patient to [facility] per private vehicle. Discharge instructions and return precautions reviewed with her. All questions answered. Departure Impression Primary Impression: Dementia Qualified Codes: G30.9 - Alzheimer's disease, unspecified; F02.81 - Dementia in other diseases classified elsewhere with behavioral disturbance Additional Impressions: Anxiety Paranoia Disposition: 02 XFER SHT-TRM HOSP Condition: Stable Transfer Transfer Reason: Exceeds level of care Transfer Progress Notes Patient evaluated by Screener and bed available for transfer, (POA) agreed with this plan of care. Transfer Time: 14:40 Transfer Facility: [facility] Method of Transfer: Private Vehicle Departure-Patient Inst. Decision time for Depature: 14:00 Referrals: JESSICA MACIEL MD (PCP/Family) Primary Care Physician Patient Instructions: Dementia (Including Alzheimer Disease) Copy Copies To 1: JESSICA MACIEL MD, AMY ARNP Jun 24, 2019 11:58
[2019-06-24] MEDS ORDERED: ALPR0.254 PO (12:03)
[2019-06-24] MEDS ORDERED: ESCI20TA45 PO (12:03)
[2019-06-24 12:07] LABS: BILIRUBIN,URINE NEGATIVE (NEGATIVE); CLARITY,URINE CLEAR; COLOR,URINE YELLOW; GLUCOSE, URINE (UA) NEGATIVE (NEGATIVE); KETONES,URINE NEGATIVE (NEGATIVE); LEUKOCYTE ESTERASE ,URINE NEGATIVE (NEGATIVE); NITRITE,URINE NEGATIVE (NEGATIVE); PH,URINE 6.5 (5-9); PROTEIN,URINE NEGATIVE (NEGATIVE)
[2019-06-24 12:14] LABS: BACTERIA,URINE TRACE /HPF; RBC,URINE RARE /HPF; SQUAMOUS EPITHELIAL CELL,UR RARE /HPF; WBC,URINE RARE /HPF
[2019-06-24 12:35] LABS: BASOPHILS % (AUTO) 0 % (0-10); EOSINOPHILS # (AUTO) 0.1 10^3/uL (0.0-0.3); EOSINOPHILS % (AUTO) 2 % (0-10); LYMPHOCYTES # (AUTO) 0.7 X 10^3 (1.0-4.0); LYMPHOCYTES % (AUTO) 21 % (12-44); MEAN CORPUSCULAR HGB CONC 34 G/DL (32-36); MEAN CORPUSCULAR VOLUME 98 FL (80-99); MEAN PLATELET VOLUME 7.8 FL (7.4-10.4); MONOCYTES # (AUTO) 0.3 X 10^3 (0.0-1.0); MONOCYTES % (AUTO) 8 % (0-12); NEUTROPHILS # (AUTO) 2.3 X 10^3 (1.8-7.8); NEUTROPHILS % (AUTO) 69 % (42-75); RED CELL DISTRIBUTION WIDTH 12.7 % (10.0-14.5)
[2019-06-24 12:36] LABS: HEMATOCRIT 40 % (40-54); HEMOGLOBIN 13.7 G/DL (13.3-17.7); MEAN CORPUSCULAR HEMOGLOBIN 33 PG (25-34); PLATELET COUNT 164 10^3/uL (130-400); WHITE BLOOD COUNT 3.7 10^3/uL (4.3-11.0)
[2019-06-24 12:49] LABS: PROTHROMBIN TIME PATIENT 13.8 SEC (12.2-14.7)
--- NOTE | 2019-06-24 12:52 | NUR ---
SCREENER HERE TO SEE PT
[2019-06-24 12:59] LABS: ALANINE AMINOTRANSFERASE 20 U/L (0-55); ALBUMIN 3.9 GM/DL (3.2-4.5); ALKALINE PHOSPHATASE 62 U/L (40-136); BILIRUBIN,TOTAL 0.6 MG/DL (0.1-1.0); BUN/CREATININE RATIO 12; CALCIUM 9.3 MG/DL (8.5-10.1); CARBON DIOXIDE 17 MMOL/L (21-32); CHLORIDE 109 MMOL/L (98-107); CREATININE SERUM 0.92 MG/DL (0.60-1.30); GFR ESTIMATED > 60; GLUCOSE 99 MG/DL (70-105); POTASSIUM 4.4 MMOL/L (3.6-5.0); SODIUM 138 MMOL/L (135-145); TOTAL PROTEIN 6.9 GM/DL (6.4-8.2)
[2019-06-24 14:40] VITALS: BP 139/86
--- NOTE | 2019-06-24 14:40 | NUR ---
SCREENER HAS ACCEPTED PT TO [facility]. TO TAKE PT PER PVT VEHICLE.
--- NOTE | 2019-06-24 14:40 | NUR ---
REPORT TO AUAR CHOWDHURY.
[2019-06-28] MEDS ORDERED: VITAMIN D3 1000 UNIT PO (13:40)
[2019-06-28] MEDS ORDERED: MULT1TAB69 PO (13:40)
[2019-06-28] MEDS ORDERED: TMSL.4C PO (13:40)
== END 2019-06-24 14:40 | disposition short-term general hospital (02) ==
LOC: EDUNIT# 11:39 → ER 11:40
DX: G30.9 Alzheimer's disease, unspecified (principal); F02.81 Dementia in other diseases classified elsewhere, unspecified severity, with behavioral disturbance; F22 Delusional disorders; F41.9 Anxiety disorder, unspecified; I10 Essential (primary) hypertension; Z90.49 Acquired absence of other specified parts of digestive tract
CPT/HCPCS: 36415; 80053; 81000; 85025; 85610; 85730; 99283